=== PATIENT | female | born 1985 | race Caucasian/White ===

== ENCOUNTER 2017-07-23 12:22 | Inpatient (IN) | payer BC ==
[2017-07-23] MEDS: LACTATED RINGER'S 1,000 ML IV ×3 (13:59→23:13)
[2017-07-23] MEDS ORDERED: LIDOCAINE 1% (MPF) 30 ML INJ INJ (14:00)
[2017-07-23] MEDS ORDERED: IBUPROFEN 600 MG TAB PO (14:00)
[2017-07-23] MEDS ORDERED: MISOPROSTOL 200 MCG TAB PR (14:00)
[2017-07-23] MEDS ORDERED: OXYTOCIN 30 UNITS/LR 500 ML IV (14:00)
[2017-07-23 14:47] LABS: WHITE BLOOD COUNT 8.8 10^3/ul (4.8-10.8)
[2017-07-23 14:47] LABS: ADD MAN DIFF? NO; BASOPHILS % 0.5 % (0.0-2.0); EOSINOPHILS % 0.2 % (0.0-7.0); HEMATOCRIT 39.4 % (37.0-47.0); HEMOGLOBIN 13.6 g/dl (12.0-16.0); LYMPHOCYTES # 1.8 10^3/ul (0.8-2.9); LYMPHOCYTES % 20.3 % (15.0-51.0); MEAN CORPUSCULAR HEMOGLOBIN 32.8 pg (29.0-33.0); MEAN CORPUSCULAR HGB CONC 34.5 g/dl (32.0-37.0); MEAN CORPUSCULAR VOLUME 94.9 fl (82.0-101.0); MEAN PLATELET VOLUME 12.2 fl (7.4-10.4); MONOCYTE # 0.5 10^3/ul (0.3-0.9); MONOCYTES % 5.6 % (0.0-11.0); NEUTROPHIL # 6.4 10^3/ul (1.6-7.5); NEUTROPHILS % 72.6 % (39.0-77.0); PLATELET COUNT 188 10^3/UL (140-415); RED BLOOD COUNT 4.15 10^6/ul (4.20-5.40); RED CELL DISTRIBUTION WIDTH 12.8 % (11.5-14.5)
[2017-07-23] MEDS: DINOPROSTONE 10 MG VAG SUPP VAG (14:53)
[2017-07-23 15:27] LABS: INR 0.83; PROTIME 11.5 Sec (11.9-14.9); PT RATIO 0.9
[2017-07-23 15:28] LABS: PARTIAL THROMBOPLASTIN TIME 26.1 Sec (25.0-35.0)
[2017-07-23 15:52] LABS: HEPATITIS B SURFACE ANTIGEN NEGATIVE (NEGATIVE)
[2017-07-23] MEDS: BUTORPHANOL 2 MG INJ IV (19:49)
[2017-07-23] MEDS ORDERED: FENTAnyl 2MCG/ML-ROPIV 0.2% 100 ML (22:01)
[2017-07-23] MEDS ORDERED: NALOXONE (0.4 MG/ML) INJ IV (22:30)
[2017-07-23] MEDS ORDERED: ONDANSETRON 4 MG INJ IV (22:30)
[2017-07-23] MEDS ORDERED: DIPHENHYDRAMINE 50 MG INJ IV (22:30)
[2017-07-24] MEDS: LACTATED RINGER'S 1,000 ML IV (01:42)
[2017-07-24] MEDS: FENTAnyl 2MCG/ML-ROPIV 0.2% 100 ML BAG EPI (02:15)
[2017-07-24] MEDS: AMPICILLIN 2 GM/NS (PMX) 100 ML IVPB (02:19)
[2017-07-24] MEDS: METHYLERGONOVINE 0.2 MG INJ IM (03:28)
[2017-07-24] MEDS: CARBOPROST 250 MCG INJ IM (03:29)
[2017-07-24] MEDS: OXYTOCIN 30 UNITS/LR 500 ML IV ×2 (03:31)
[2017-07-24] MEDS: LACTATED RINGER'S 1,000 ML IV* ×2 (06:15→08:28)
[2017-07-24] MEDS: LEVOTHYROXINE 125 MCG TAB PO (06:28)
[2017-07-24] MEDS ORDERED: METHYLERGONOVINE 0.2 MG INJ IM (06:30)
[2017-07-24] MEDS ORDERED: CARBOPROST 250 MCG INJ IM (06:30)
[2017-07-24] MEDS ORDERED: ZOLPIDEM 5 MG TAB PO (06:30)
[2017-07-24] MEDS ORDERED: OXYTOCIN 30 UNITS/LR 500 ML IV (06:30)
[2017-07-24] MEDS ORDERED: MISOPROSTOL 200 MCG TAB PR (06:30)
[2017-07-24] MEDS ORDERED: OXYCODONE/ASPIRIN (4.88/325) TAB PO ×2 (06:30)
[2017-07-24] MEDS: IBUPROFEN 600 MG TAB PO ×4 (06:35→23:33)
[2017-07-24] MEDS: SENNA/DOCUSATE NA (8.6MG/50MG) TAB PO ×2 (09:19→22:01)
[2017-07-24] MEDS: WITCH HAZEL/GLYCERIN PAD PR (10:48)
[2017-07-24] MEDS: BENZOCAINE 20% 56 ML SPRAY TOP (10:49)
[2017-07-24] MEDS: LANOLIN 7 GM TUBE TOP (10:49)
[2017-07-24 15:24] LABS: RAPID PLASMA REAGIN NONREACTIVE (NR)
[2017-07-25] MEDS: LEVOTHYROXINE 125 MCG TAB PO (05:52)
[2017-07-25] MEDS: IBUPROFEN 600 MG TAB PO ×3 (05:52→17:33)
[2017-07-25] MEDS: SENNA/DOCUSATE NA (8.6MG/50MG) TAB PO (08:20)
[2017-07-25 10:59] LABS: ADD MAN DIFF? NO
[2017-07-25 11:08] LABS: BASOPHILS % 0.3 % (0.0-2.0); EOSINOPHILS % 0.2 % (0.0-7.0); HEMATOCRIT 32.3 % (37.0-47.0); HEMOGLOBIN 11.1 g/dl (12.0-16.0); LYMPHOCYTES % 9.6 % (15.0-51.0); MEAN CORPUSCULAR HGB CONC 34.4 g/dl (32.0-37.0); MEAN CORPUSCULAR VOLUME 96.1 fl (82.0-101.0); MEAN PLATELET VOLUME 11.1 fl (7.4-10.4); MONOCYTE # 0.5 10^3/ul (0.3-0.9); MONOCYTES % 4.9 % (0.0-11.0); NEUTROPHIL # 8.9 10^3/ul (1.6-7.5); NEUTROPHILS % 84.1 % (39.0-77.0); PLATELET COUNT 151 10^3/UL (140-415); RED BLOOD COUNT 3.36 10^6/ul (4.20-5.40); RED CELL DISTRIBUTION WIDTH 13.6 % (11.5-14.5)
[2017-07-25 11:08] LABS: WHITE BLOOD COUNT 10.5 10^3/ul (4.8-10.8)
[2017-07-26] MEDS: SENNA/DOCUSATE NA (8.6MG/50MG) TAB PO ×2 (00:25→08:53)
[2017-07-26] MEDS: IBUPROFEN 600 MG TAB PO ×3 (00:26→12:27)
[2017-07-26] MEDS: LEVOTHYROXINE 125 MCG TAB PO (06:40)
[2017-07-26] MEDS ORDERED: DIPHTH/TET/ACEL PERTUSS (ADULT) 0.5 ML VIAL IM* (09:00)
== END 2017-07-26 17:10 | disposition home or self-care (01) | DRG 775 ==
LOC: PP1 07-24 05:48 → L-D 12:22
PROVIDERS: Obstetrics & Gynecology
PROC: 10E0XZZ Delivery of Products of Conception, External Approach (ICD-10-PCS; principal; 2017-07-23)
PROC: 0W8NXZZ Division of Female Perineum, External Approach (ICD-10-PCS; 2017-07-23)
PROC: 3E0P7VZ Introduction of Hormone into Female Reproductive, Via Natural or Artificial Opening (ICD-10-PCS; 2017-07-23)
DX: O41.03X0 Oligohydramnios, third trimester, not applicable or unspecified (principal); O77.0 Labor and delivery complicated by meconium in amniotic fluid; O62.2 Other uterine inertia; O76 Abnormality in fetal heart rate and rhythm complicating labor and delivery; Z3A.40 40 weeks gestation of pregnancy; Z37.0 Single live birth
CPT/HCPCS: 62319; 85025; 85610; 85730; 86592; 86900; 86901; 87340; 99464